=== PATIENT | female | born 1960 | race Caucasian/White ===

== ENCOUNTER 2017-05-01 12:01 | Outpatient (CLI) | payer OTHER ==
[2017-05-01 16:37] LABS: Hemoglobin A1c 5.8 % (4.0-6.0)
[2017-05-01 16:48] LABS: ALT (SGPT) 63 U/L (8-55); AST (SGOT) 41 U/L (5-34); Albumin 4.5 g/dL (3.5-5.0); Alkaline Phosphatase 93 U/L (40-150); Anion Gap 17 mmol/L (10-20); BUN (Urea Nitrogen) 16 mg/dL (9.8-20.1); Bilirubin, Total 0.7 mg/dL (0.2-1.2); Calc. Creatinine Clearance 0 mL/min (70-130); Calcium 9.8 mg/dL (7.8-10.44); Carbon Dioxide 25 mmol/L (22-29); Cardiac Risk 5.5 (Less than 4.5); Chloride 104 mmol/L (98-107); Cholesterol 181 mg/dl (< 200 Desired); Estimated GFR-MDRD 70; Globulin 2.3 g/dL (2.4-3.5); Glucose 120 mg/dL (70-105); HDL Cholesterol 33 mg/dL (>60 Neg Risk); LDL Cholesterol, Calculated 98 mg/dL; Potassium 4.8 mmol/L (3.5-5.1); Protein, Total 6.8 g/dL (6.0-8.3); Sodium 141 mmol/L (136-145); Triglycerides 252 mg/dL (Less than 150)
== END 2017-05-01 12:02 | disposition home or self-care (01) ==
LOC: LABLEX 12:01
PROVIDERS: ATTEND Family Medicine
DX: Z00.00 Encounter for general adult medical examination without abnormal findings (principal)
CPT/HCPCS: 80053; 80061; 83036

== ENCOUNTER 2022-11-13 10:41 | Outpatient (CLI) | payer BC | END 2022-11-13 10:42 | disposition home or self-care (01) | LOC: BURRAD 10:41 | PROVIDERS: ATTEND Nurse Practitioner | DX: R50.9 Fever, unspecified (principal); R91.8 Other nonspecific abnormal finding of lung field | CPT/HCPCS: 71046 ==